=== PATIENT | male | born 1980 | race Caucasian/White ===

== ENCOUNTER 2023-04-27 11:10 | Emergency (ER) | payer OTHER, SELFPAY ==
[2023-04-27 11:24] VITALS: BP 130/83; PULSE 66; RESP 18; TEMP 36.7; O2SAT 99; BMI 29.3
--- NOTE | 2023-04-27 11:29 | XR_ITS ---
The [address] [address] Patient Name: JED JACOME MRN: [id number] date: 1980 Sex: M Assigned Patient Location: ER Current Patient Location: ED.MAIN Accession/Order Number: [id number] Exam Date: 04/27/2023 11:30 Report Date: 04/27/2023 12:56 At the request of: JANN PETIT Procedure: XR foot LT min 3V EXAM: XR ankle LT min 3V, XR foot LT min 3V HISTORY: injury COMPARISON: None. Technique: 3 views of the left foot and ankle FINDINGS: There is no acute fracture or dislocation. The ankle mortise is unremarkable. The talar dome is congruent. The soft tissues are unremarkable. XR/XR foot LT min 3V IMPRESSION: No acute fracture. Electronically authenticated by: KAJAL MURPHY Date: 04/27/2023 12:56
--- NOTE | 2023-04-27 11:29 | XR_ITS ---
The [address] [address] Patient Name: JED JACOME MRN: [id number] date: 1980 Sex: M Assigned Patient Location: ER Current Patient Location: ED.MAIN Accession/Order Number: [id number] Exam Date: 04/27/2023 11:30 Report Date: 04/27/2023 12:56 At the request of: JANN PETIT Procedure: XR ankle LT min 3V EXAM: XR ankle LT min 3V, XR foot LT min 3V HISTORY: injury COMPARISON: None. Technique: 3 views of the left foot and ankle FINDINGS: There is no acute fracture or dislocation. The ankle mortise is unremarkable. The talar dome is congruent. The soft tissues are unremarkable. XR/XR ankle LT min 3V IMPRESSION: No acute fracture. Electronically authenticated by: KAJAL MURPHY Date: 04/27/2023 12:56
--- NOTE | 2023-04-27 11:52 | ED.LOWEXI1 ---
HPI - Extremity Injury (Lower) General Chief Complaint: Extremity Injury, Lower Stated Complaint: LOWER EXTREMITY INJURY TO LEFT foot Time Seen by Provider: 04/27/23 11:47 Source: patient Mode of arrival: walk-in Limitations: no limitations History of Present Illness HPI Narrative: patient here complaining of pain over the dorsum of his left foot. He states he fell yesterday while training's dog. He thinks he either hyperextended his foot but he didn't know exactly the details because it happened so quickly. He had a little bit of swelling yesterday but today woke up and the entire dorsum of his left foot is swollen and painful. Really has very little discomfort in his knee. He has actually no discomfort is the but little discomfort in his ankle. He is triaged to x-ray by the nursing staff Related Data Allergies Allergy/AdvReac Type Severity Reaction Status Date / Time No Known Drug Allergies Allergy Verified 04/27/23 11:24 PFSH PFSH Social History Smoking status: Light tobacco smoker Exam Narrative Exam Narrative: a pleasant awake alert vital signs stable problem focused examination shows neurovascular examination distal foot be normal. There is no open wound or cellulitis. The arch of the she's been the dorsum of the foot is swollen and edematous. Tender to touch. No pain over the ankle mortise itself. Movement reproduces his discomfort. Constitutional Vital Signs, click to edit/add: Last Vital Signs Temp 98.1 F 04/27/23 11:24 Pulse 66 04/27/23 11:24 Resp 18 04/27/23 11:24 BP 130/83 04/27/23 11:24 Pulse Ox 99 04/27/23 11:24 O2 Del Method Room Air 04/27/23 11:24 Course Vital Signs Vital signs: Vital Signs Temperature 98.1 F 04/27/23 11:24 Pulse Rate 66 04/27/23 11:24 Respiratory Rate 18 04/27/23 11:24 Blood Pressure 130/83 04/27/23 11:24 Pulse Oximetry 99 04/27/23 11:24 Oxygen Delivery Method Room Air 04/27/23 11:24 Temperature 98.1 F 04/27/23 11:24 Pulse Rate 66 04/27/23 11:24 Respiratory Rate 18 04/27/23 11:24 Blood Pressure 130/83 04/27/23 11:24 Pulse Oximetry 99 04/27/23 11:24 Oxygen Delivery Method Room Air 04/27/23 11:24 MDM - Extremity Injury (Lower) MDM Narrative Medical decision making narrative: preliminary x-rays myself shows no obvious fracture. We'll place an Carlos wrap nonweight bearing a postop shoe and have him follow-up with Dr. Albarado answers been significant soft tissue injury to his foot. This was carefully explained to the patient. Discharge Plan Discharge Chief Complaint: Extremity Injury, Lower Clinical Impression: Other sprain of left foot, initial encounter Patient Disposition: Home, Self-Care Time of Disposition Decision: 11:54 Additional Instructions: ice elevate no weightbearing and off for forty-eight hours. Follow-up with Dr. Pollard under Stand Alone Forms: Portal Instructions Referrals: NANCY CHOPRA [Primary Care Provider] - 1 week
== END 2023-04-27 12:20 | disposition home or self-care (01) ==
PROVIDERS: Emergency Provider Emergency Medicine Emergency Medical Services; PCP Family Medicine
DX: S93.602A Unspecified sprain of left foot, initial encounter (principal); W19.XXXA Unspecified fall, initial encounter; F17.210 Nicotine dependence, cigarettes, uncomplicated
CPT/HCPCS: 73610; 73630; 99284